=== PATIENT | male | born 1980 | race African-American/Black ===

== ENCOUNTER 2021-12-13 21:05 | Emergency (ER) | payer SELFPAY ==
[~2021-12-13] VITALS: Ht 172.7 cm; Wt 82.0 kg
[2021-12-13 23:57] LABS: BASOPHILS % 0.5 % (0.0-2.0); EOSINOPHILS % 0.4 % (0.0-5.0); HEMATOCRIT. 36.1 % (42.0-52.0); HEMOGLOBIN. 12.3 g/dL (14.0-18.0); LYMPHOCYTES % 33.3 % (20.0-50.0); MEAN CORPUSCULAR HEMOGLOBIN 30.6 pg (28.0-32.0); MEAN CORPUSCULAR VOLUME 89.8 fL (80.0-94.0); MONOCYTES % 10.5 % (2.0-8.0); NEUTROPHILS % 55.3 % (40.0-76.0); PLATELET 206 x1000/uL (130-400); RED BLOOD CELL COUNT 4.02 mill/uL (4.7-6.1); RED CELL DISTRIBUTION WIDTH 15.4 % (11.6-14.6)
[2021-12-14 00:05] LABS: CHLORIDE 108 mEq/L (98-107)
[2021-12-14 00:16] LABS: OPIATES URINE SCREEN NEGATIVE (NEGATIVE)
[2021-12-14 00:17] LABS: *AMPHETAMINES SCREEN URINE NEGATIVE (NEGATIVE); *BENZODIAZEPINES SCREEN URINE NEGATIVE (NEGATIVE); *COCAINE SCREEN URINE NEGATIVE (NEGATIVE); CANNABINOID URINE SCREEN NEGATIVE (NEGATIVE); METHADONE URINE SCREEN NEGATIVE (NEGATIVE); PHENCYCLIDINE URINE SCREEN NEGATIVE (NEGATIVE)
[2021-12-14 00:49] LABS: ETHANOL BLOOD 374 mg/dL
[2021-12-14 02:35] VITALS: BP 118/64
[2021-12-14 22:54] LABS: *BARBITURATES SCREEN URINE NEGATIVE (NEGATIVE)
== END 2021-12-14 05:22 | disposition home or self-care (01) ==
LOC: EDBD 21:05 → ER 21:05
DX: T51.0X1A Toxic effect of ethanol, accidental (unintentional), initial encounter (principal); R41.82 Altered mental status, unspecified; Y90.8 Blood alcohol level of 240 mg/100 ml or more; Y92.89 Other specified places as the place of occurrence of the external cause
CPT/HCPCS: 36415; 80053; 80305; 80320; 85025; 93005; 99285; G0480

== ENCOUNTER 2021-12-27 01:36 | Emergency (ER) | payer SELFPAY ==
[~2021-12-27] VITALS: Ht 175.3 cm; Wt 82.0 kg
[2021-12-27 04:09] LABS: BASOPHILS % 0.9 % (0.0-2.0); EOSINOPHILS % 0.3 % (0.0-5.0); HEMOGLOBIN. 13.2 g/dL (14.0-18.0); LYMPHOCYTES % 40.9 % (20.0-50.0); MEAN CORPUSCULAR HEMOGLOBIN 30.8 pg (28.0-32.0); MEAN PLATELET VOLUME 7.3 fl (7.4-10.4); MONOCYTES % 13.2 % (2.0-8.0); NEUTROPHILS % 44.7 % (40.0-76.0); PLATELET 250 x1000/uL (130-400); RED BLOOD CELL COUNT 4.29 mill/uL (4.7-6.1); RED CELL DISTRIBUTION WIDTH 18.2 % (11.6-14.6)
[2021-12-27 04:16] VITALS: BP 136/80
[2021-12-27 04:20] LABS: CHLORIDE 105 mEq/L (98-107)
[2021-12-27 05:31] LABS: ETHANOL BLOOD 460 mg/dL
== END 2021-12-27 08:07 | disposition left against medical advice (07) ==
LOC: ER 01:36
DX: F10.129 Alcohol abuse with intoxication, unspecified (principal); Y90.8 Blood alcohol level of 240 mg/100 ml or more
CPT/HCPCS: 36415; 80053; 80307; 80320; 80329; 85025; 99283; G0480